=== PATIENT | male | born 1970 | race African-American/Black ===

== ENCOUNTER 2024-03-27 08:38 | Emergency (ER) | payer BC, SELFPAY ==
[2024-03-27 08:40] VITALS: BP 148/105; PULSE 96; RESP 18; TEMP 36.9; O2SAT 99
--- NOTE | 2024-03-27 08:48 | ED.ALLEREA ---
HPI - Allergic Reaction General Chief complaint: Allergic Reaction Stated complaint: allergic reaction, angioedema Time Seen by Provider: 03/27/24 08:47 Source: patient Mode of arrival: ambulatory Limitations: no limitations History of Present Illness HPI narrative: Patient presents with swelling to his left upper lip. He is on lisinopril , last dose taken this morning. Not a new medication, has stably been on it for awhile. No other new foods or exposures. Denies shortness of breath, GI symptoms, rash. Related Data Allergies Allergy/AdvReac Type Severity Reaction Status Date / Time lisinopril Allergy Severe ANGIOEDEMA Verified 03/27/24 08:56 PMFSH Past Medical History Medical History Hypertension Social History Social History Occupation/Education: occupation Exam Narrative: GENERAL: Well-appearing, well-nourished, and in no acute distress. HEAD: Normocephalic, atraumatic. EYES: Non injected, non icteric ENT: Nares clear, no rhinorrhea or epistaxis. Mildly swollen tongue. Floor of mouth without significant swelling. Posterior oropharynx visualized. Uvula midline. Left upper lip swollen and edematous. NECK: Supple. CHEST: Speaking in full sentences. No respiratory distress. Lungs clear to auscultation bilaterally. HEART: Regular rate and rhythm. . ABDOMEN: Soft, nondistended. EXTREMITIES: Normal range of motion. No edema. SKIN: Warm, dry, no rash. NEURO: No focal deficits. Alert and oriented x3. PSYCH: Normal mood and affect. Course Vital Signs Vital signs: Vital Signs Temperature 98.4 F 03/27/24 08:40 Pulse Rate 96 03/27/24 08:40 Respiratory Rate 18 03/27/24 08:40 Blood Pressure 148/105 H 03/27/24 08:40 Pulse Oximetry 99 03/27/24 08:40 Oxygen Delivery Room Air 03/27/24 08:40 Temperature 98.0 F 03/27/24 15:15 Pulse Rate 74 03/27/24 15:15 Respiratory Rate 17 03/27/24 15:15 Blood Pressure 120/93 H 03/27/24 15:15 Pulse Oximetry 95 03/27/24 15:15 Oxygen Delivery Room Air 03/27/24 08:52 MDM - Allergic Reaction MDM Narrative Medical decision making narrative: Patient presents with acute onset left upper lip and mild tongue swelling starting this morning. He is on lisinopril, though not a new medication. No other known exposures. In the ED he is afebrile with VS that show hypertension. This does have the appearance of angioedema though appears relatively mild to moderate. No second organ involvement to suggest anaphylaxis. Initially trialed steroid and diphenhydranine. Patient remains without additional symptoms though the swelling does spread/expand to the right side of the upper lip as well. Tongue remains stable in size. TXA given and will observe for 4 hours. BUN and Cr elevated without prior for comparison so unclear EUGENE versus CKD. IV fluids given. Patient frequently reassessed during observation period. He remains stable. Swelling improving. No other symptoms. Lisinopril was added to patient's allergy list. Given lisinopril was his antihypertensive he was initially discharged with a 30 day prescription for a low-dose of amlodipine. However, upon discharge he does inform the nurse that he is also on 10 mg amlodipine at baseline already. He is thus informed that he does not need make up this prescription and to continue taking the 10 mg amlodipine that is his normal prescribed dose, discontinue taking lisinopril, and follow-up with primary care physician to see if a 2nd agent or an escalation in amlodipine dosage is necessary in the future. Differential Diagnosis Differential diagnosis: Likely anaphylaxis, allergic reaction, angioedema and adverse reaction to drug Lab Data Attestation: I reviewed the patient's lab results. 03/27/24 09:00 03/27/24 09:00 Labs: Lab Results 03/27/24 Range/Units 09:00 WBC 6
[2024-03-27 08:52] VITALS: O2SAT 96
[2024-03-27] MEDS: methylPREDNISolone SOD SUCC 125 MG VIAL IV PUSH (08:55)
[2024-03-27] MEDS: diphenhydrAMINE HCl INJ 50 MG/ML VIAL 25 MG IV PUSH (08:55)
[2024-03-27 09:06] LABS: Basophils Percent Auto 0.5 % (0.2-1.2); Eosinophils Absolute Auto 0.3 K/mm3 (0-0.3); Eosinophils Percent Auto 4.6 % (0-4.4); Hematocrit 43.1 % (42.0-52.0); Hemoglobin 14.5 g/dL (14.0-18.0); Immature Granulocyte Absolute 0.03 K/mm3 (0.00-0.031); Immature Granulocyte Percent A 0.5 % (0-0.5); Lymphocytes Absolute Auto 1.57 K/mm3 (0.9-3.2); Lymphocytes Percent Auto 25.5 % (18.3-44.2); Mean Corpuscular HGB Conc 33.6 g/dl (32-36); Mean Corpuscular Hemoglobin 26.9 pg (26-34); Mean Corpuscular Volume 79.8 fl (80-100); Mean Platelet Volume 10.2 fl (7.4-10.4); Monocytes Absolute Auto 0.7 K/mm3 (0.1-0.6); Monocytes Percent Auto 11.1 % (2.6-8.5); Neutrophils Absolute Auto 3.6 K/mm3 (1.3-6.7); Neutrophils Percent Auto 57.8 % (45.5-73.1); Platelet Count Result 234 k/mm3 (150-375); Red Cell Distribution Width 13.9 % (11.5-14.5); White Blood Count 6.2 K/mm3 (4.5-10.0)
[2024-03-27 09:15] LABS: Alanine Aminotransferase 33 U/L (6-50); Albumin Level 4.7 g/dL (3.5-5.1); Alkaline Phosphatase 64 U/L (38-126); Anion Gap 13 mmol/L (4-12); Aspartate Amino Transferase 34 U/L (17-59); Bilirubin,Total 0.6 mg/dL (0.2-1.3); Blood Urea Nitrogen 31 mg/dL (9-20); Calcium 9.2 mg/dL (8.4-10.2); Carbon Dioxide 26 mmol/L (22-30); Chloride 103 mmol/L (98-107); Estimated CRCL calculation 70 ml/min; Estimated Glomerular Filt Rate 60; Glucose 107 mg/dL (65-110); Potassium 3.7 mmol/L (3.4-5.0); Sodium 142 mmol/L (137-145)
[2024-03-27] MEDS: SODIUM CHLORIDE 0.9% IV 1,000 ML 999 ML IV CONT (10:04)
[2024-03-27] MEDS: TRANEXAMIC ACID 1,000MG/ISO100 1,000 MG/100 ML BAG 600 MG IVPB (10:32)
[2024-03-27 11:33] VITALS: BP 118/81; PULSE 74; RESP 19; O2SAT 96
[2024-03-27 12:33] VITALS: BP 123/80; PULSE 75; RESP 14; O2SAT 96
[2024-03-27 15:15] VITALS: BP 120/93; PULSE 74; RESP 17; TEMP 36.7; O2SAT 95
[2024-04-01 09:28] LABS: C1 Esterase Inhibitor 97 % (>=68)
== END 2024-03-27 13:13 | disposition home or self-care (01) ==
PROVIDERS: Emergency Provider Student in an Organized Health Care Education/Training Program; PCP Internal Medicine
DX: T78.3XXA Angioneurotic edema, initial encounter (principal); T46.4X5A Adverse effect of angiotensin-converting-enzyme inhibitors, initial encounter; I10 Essential (primary) hypertension
CPT/HCPCS: 36415; 80053; 85025; 86160; 96361; 96365; 96375; 99284; J1200; J2919; J7030